=== PATIENT | female | born 2000 | race Two or more races ===

== ENCOUNTER 2023-02-09 20:20 | Inpatient (IN) | payer MEDICAID, OTHER ==
[~2023-02-09] VITALS: Ht 167.6 cm; Wt 48.0 kg
[2023-02-09] MEDS ORDERED: LORazepam 2 MG/ML VIAL IM ONE (22:30)
[2023-02-09] MEDS ORDERED: HALOPERIDOL LACTATE 5 MG/ML VIAL IM ONE (22:30)
[2023-02-09] MEDS ORDERED: DiphenhydrAMINE HCL 50 MG/ML VIAL IM ONE (22:30)
[2023-02-10 00:53] LABS: COVID AG,FIA SOURCE NASAL SWAB
[2023-02-10] MEDS ORDERED: LORazepam 2 MG TABLET PO PRN (01:15)
[2023-02-10] MEDS ORDERED: ZOLPIDEM TARTRATE 10 MG TABLET PO PRN (01:15)
[2023-02-10] MEDS ORDERED: HALOPERIDOL 5 MG TABLET PO PRN (01:15)
[2023-02-10 01:45] LABS: BASOPHILS % (AUTO) 0.6 % (0.0-2.0); EOSINOPHILS % (AUTO) 0.2 % (1.0-6.0); HEMATOCRIT 37.7 % (36-46); HEMOGLOBIN 12.8 g/dL (12.0-16.0); LYMPHOCYTES # (AUTO) 4.3 K/uL (1.0-4.8); LYMPHOCYTES % (AUTO) 31.5 % (22.0-44.0); MEAN CORPUSCULAR HEMOGLOBIN 29.1 pg (26.0-34.0); MEAN CORPUSCULAR HGB CONC 33.9 G/dL (31.0-37.0); MEAN CORPUSCULAR VOLUME 86 fL (80-100); MONOCYTES # (AUTO) 0.9 K/uL (0.1-1.0); MONOCYTES % (AUTO) 6.7 % (2.0-9.0); NEUTROPHILS # (AUTO) 8.4 K/uL (1.8-7.7); PLATELET COUNT (AUTO) 280 K/uL (150-450); RED CELL DISTRIBUTION WIDTH 12.7 % (11.5-14.5)
[2023-02-10 01:54] LABS: ANION GAP 11 mmol/L (8-16); CALCIUM, TOTAL 9.4 mg/dL (8.8-10.5); CARBON DIOXIDE 24 mmol/L (22-29); CHLORIDE 104 mmol/L (98-107); CREATININE 0.83 mg/dL (0.60-1.30); GLOMERULAR FILTR. RATE CALC > 60 mL/min (>60); GLUCOSE,RANDOM 90 mg/dL (70-110); POTASSIUM 3.4 mmol/L (3.5-5.1); SODIUM SERUM 139 mmol/L (136-145)
[2023-02-10 02:00] LABS: ALANINE AMINOTRANSFERASE 20 U/L (12-78); ALBUMIN 4.1 g/dL (3.4-5.0); ALKALINE PHOSPHATASE 38 U/L (46-116); ASPARTATE AMINOTRANSFERASE 18 U/L (15-37); BILIRUBIN,TOTAL 1.2 mg/dL (0.1-1.0); TOTAL PROTEIN, SERUM 7.1 g/dL (6.4-8.2)
[2023-02-10 03:50] VITALS: BP 100/63
[2023-02-10] MEDS ORDERED: GuaiFENesin/D-METHORPHAN [SUGAR-FREE] 200-20MG/10 ML SYRUP UDCUP PO PRN (11:30)
[2023-02-10] MEDS ORDERED: HydrOXYzine PAMOATE 50 MG CAPSULE PO PRN (11:30)
[2023-02-10] MEDS ORDERED: MAGNESIUM HYDROXIDE SUSPENSION 30 ML UDCUP PO PRN (11:30)
[2023-02-10] MEDS ORDERED: ACETAMINOPHEN 325 MG TABLET PO PRN (11:30)
[2023-02-10] MEDS ORDERED: PROMETHAZINE HCL 25 MG TABLET PO PRN (11:30)
[2023-02-10] MEDS ORDERED: TUBERCULIN, PURIFIED PROTEIN DERIVATIVE 5 TU/0.1 ML SYRINGE ID ONE (11:30)
[2023-02-10] MEDS ORDERED: LOPERAMIDE HCL 2 MG CAPSULE PO PRN (11:30)
[2023-02-10] MEDS ORDERED: MAG HYDROX/AL HYDROX/SIMETH ES 30 ML SUSPENSION UDCUP PO PRN (11:30)
[2023-02-10] MEDS ORDERED: OLANZapine 5 MG RAPDIS TABLET PO PRN (11:30)
[2023-02-10] MEDS: THIAMINE 100 MG TABLET PO SCH (16:22)
[2023-02-10] MEDS: MELATONIN 5 MG TABLET PO SCH (20:29)
[2023-02-10] MEDS: OLANZapine 5 MG RAPDIS TABLET PO SCH (20:29)
[2023-02-11 08:25] VITALS: BP 114/68
[2023-02-11] MEDS: MULTIVITAMINS WITH MINERALS, THERAPEUTIC TABLET PO SCH ×2 (08:28→09:00)
[2023-02-11] MEDS: NALTREXONE HCL 50 MG TABLET PO SCH ×2 (08:28→09:00)
[2023-02-11] MEDS: THIAMINE 100 MG TABLET PO SCH ×3 (08:28→16:34)
[2023-02-11] MEDS: FOLIC ACID 1 MG TABLET PO SCH ×2 (08:28→09:00)
[2023-02-11] MEDS: OMEGA-3/DHA/EPA/FISH OIL 1,000 MG CAPSULE PO SCH ×2 (08:29→09:00)
[2023-02-11 20:14] VITALS: BP 105/69
[2023-02-11] MEDS: MELATONIN 5 MG TABLET PO SCH (20:40)
[2023-02-11] MEDS: OLANZapine 5 MG RAPDIS TABLET PO SCH (20:40)
[2023-02-12 08:23] VITALS: BP 118/73
[2023-02-12] MEDS: MULTIVITAMINS WITH MINERALS, THERAPEUTIC TABLET PO SCH (10:08)
[2023-02-12] MEDS: NALTREXONE HCL 50 MG TABLET PO SCH (10:09)
[2023-02-12] MEDS: FOLIC ACID 1 MG TABLET PO SCH (10:09)
[2023-02-12] MEDS: THIAMINE 100 MG TABLET PO SCH (10:09)
[2023-02-12] MEDS: OMEGA-3/DHA/EPA/FISH OIL 1,000 MG CAPSULE PO SCH (10:10)
[2023-02-12] MEDS ORDERED: OMEG-135 PO (10:35)
[2023-02-12] MEDS ORDERED: NALT50TA PO (10:35)
[2023-02-12] MEDS ORDERED: MELA5TAB40 PO (10:35)
[2023-02-12] MEDS ORDERED: OLAN5TAB94 PO (10:35)
== END 2023-02-12 11:30 | disposition home or self-care (01) | DRG 750 ==
LOC: EMS 20:24 → EDBD 20:24 → B3A 02-10 00:59
PROVIDERS: ADMIT Psychiatry & Neurology Psychiatry; ATTEND Psychiatry & Neurology Psychiatry
DX: F25.9 Schizoaffective disorder, unspecified (principal); G93.41 Metabolic encephalopathy; D72.829 Elevated white blood cell count, unspecified; E87.6 Hypokalemia; F19.10 Other psychoactive substance abuse, uncomplicated; Z20.822 Contact with and (suspected) exposure to COVID-19
CPT/HCPCS: 80053; 85025; 99291; G0480; J1200; J1630; J2060; Q9967